=== PATIENT | male | born 1965 | race Caucasian/White ===

== ENCOUNTER → 2018-03-15 | Outpatient (CLI) | payer BC, OTHER ==
[~2018-03-15] MED LIST: AMLO10; AMLO5 PO; ARMODAFINIL250 MG PO; CARV25 PO; CLON.2; Coreg12.5 MG PO; Depo-Testos200 MG/ML; Desyrel50 MG PO; ESCI10 PO; HYDCHL25 PO; INTERMEZZO3.5 MG PO; MODA200 PO; Magnesium Gluc500 MG; NAPR500; NEBI10 PO; ROSU10TA PO; SERT100; TAMS.4ER; TEMA15; TEMA30 PO; TRAM50; TRAM50 PO; VIIBRYD20 MG; ZESTRIL40 MG PO
[2018-03-15 14:38] LABS: Prostate Specific Antigen 0.696 ng/mL (0.000-4.000)
== END | disposition home or self-care (01) ==
LOC: LAB 13:46 → LAB SHORT 13:46
PROVIDERS: Hospitalist
DX: Z12.5 Encounter for screening for malignant neoplasm of prostate (principal)
CPT/HCPCS: G0103

== ENCOUNTER 2018-06-30 10:45 | Day surgery (SDC) | payer BC, OTHER ==
[~2018-06-30] VITALS: Ht 170.2 cm; Wt 101.7 kg
[~2018-06-30 10:45] MED LIST changes: +CLON.2 PO; +DIAZ5 PO; +Depo-Testos200 MG/ML IM; +MIRT30 PO; +SILDENAFIL20 MG PO
== END 2018-06-30 12:25 | disposition home or self-care (01) ==
LOC: ORSCSDS 10:45
PROVIDERS: Student in an Organized Health Care Education/Training Program
PROC: 0DBN8ZX Excision of Sigmoid Colon, Via Natural or Artificial Opening Endoscopic, Diagnostic (ICD-10-PCS; principal; 2018-06-30 12:00)
PROC: 0DBP8ZX Excision of Rectum, Via Natural or Artificial Opening Endoscopic, Diagnostic (ICD-10-PCS; principal; 2018-06-30 12:00)
DX: Z12.11 Encounter for screening for malignant neoplasm of colon (principal); K63.5 Polyp of colon; K62.1 Rectal polyp; I10 Essential (primary) hypertension; G47.33 Obstructive sleep apnea (adult) (pediatric); F41.8 Other specified anxiety disorders; Z87.891 Personal history of nicotine dependence; Z79.899 Other long term (current) drug therapy
CPT/HCPCS: 88305; J2704; J7120

== ENCOUNTER 2018-08-17 20:10 | Emergency (ER) | payer BC ==
[~2018-08-17] VITALS: Ht 170.2 cm; Wt 107.0 kg
[2018-08-17 21:38] LABS: BASOPHILS ABSOLUTE AUTO 0.05 K/mm3 (0.00-0.23); BASOPHILS PERCENT AUTO 1 % (0-2); EOSINOPHILS ABSOLUTE AUTO 0.13 K/mm3 (0.00-0.68); EOSINOPHILS PERCENT AUTO 2 % (0-6); Hematocrit 52.9 % (37.0-53.0); Hemoglobin 17.9 g/dL (13.5-17.5); IMMATURE GRAN ABSOLUTE AUTO 0.03 K/mm3 (0.00-0.10); IMMATURE GRAN PERCENT AUTO 0 % (0-1); LYMPHOCYTES ABSOLUTE AUTO 1.84 K/mm3 (0.84-5.20); LYMPHOCYTES PERCENT AUTO 22 % (21-46); MONOCYTES ABSOLUTE AUTO 0.83 K/mm3 (0.16-1.47); MONOCYTES PERCENT AUTO 10 % (4-13); Mean Corpuscular HGB 30.5 pg (26.0-34.0); Mean Corpuscular HGB Conc 33.8 g/dL (31.5-36.5); Mean Corpuscular Volume 90 fL (80-100); Mean Platelet Volume 9.5 fL (9.1-12.4); NEUTROPHILS ABSOLUTE AUTO 5.45 K/mm3 (1.96-9.15); NEUTROPHILS PERCENT AUTO 65 % (41-73); Platelet Count 253 K/mm3 (150-400); RDW Coefficient Variation 12.4 % (11.7-14.2); RDW Standard Deviation 41.2 fL (35.1-46.3); Red Blood Cell Count 5.87 M/mm3 (4.30-5.90); White Blood Cell Count 8.33 K/mm3 (4.00-11.30)
[2018-08-17 21:54] LABS: Troponin I <0.015 ng/mL (0.000-0.040)
[2018-08-17 21:55] LABS: Alanine Aminotransfer (ALT/SGP 53 U/L (12-78); Albumin, Blood 4.4 g/dL (3.4-5.0); Albumin/Globulin Ratio 1.3 (0.8-1.8); Alk Phos 62 U/L (50-136); Anion Gap 6 mmol/L (6-16); Aspartate Aminotrans (AST/SGOT 27 U/L (12-37); Bilirubin, Total 0.4 mg/dL (0.1-1.0); Blood Urea Nitrogen 16 mg/dL (8-24); Bun/Creatinine Ratio 15.7 (12.0-20.0); CO2, Blood 28 mmol/L (21-32); Calcium, Blood 9.2 mg/dL (8.5-10.1); Chloride, Blood 104 mmol/L (98-108); Creatinine, Blood 1.02 mg/dL (0.60-1.20); Globulin, Blood 3.5 g/dL (2.2-4.0); Glomerular Filtration Rate >60 (60-); Glucose, Blood 174 mg/dL (70-99); Sodium, Blood 138 mmol/L (136-145); Total Protein, Blood 7.9 g/dL (6.4-8.2)
== END 2018-08-18 01:35 | disposition home or self-care (01) ==
LOC: ER 20:10
PROVIDERS: Emergency Medicine
DX: I10 Essential (primary) hypertension (principal); F32.9 Major depressive disorder, single episode, unspecified; E78.5 Hyperlipidemia, unspecified; Z87.891 Personal history of nicotine dependence
CPT/HCPCS: 36415; 80053; 84484; 85025; 93005; 93010

== ENCOUNTER → 2018-10-24 | Outpatient (CLI) | payer BC ==
[2018-10-24 14:30] LABS: BASOPHILS ABSOLUTE AUTO 0.03 K/mm3 (0.00-0.23); BASOPHILS PERCENT AUTO 0 % (0-2); EOSINOPHILS ABSOLUTE AUTO 0.07 K/mm3 (0.00-0.68); EOSINOPHILS PERCENT AUTO 1 % (0-6); Hemoglobin 18.5 g/dL (13.5-17.5); IMMATURE GRAN ABSOLUTE AUTO 0.07 K/mm3 (0.00-0.10); IMMATURE GRAN PERCENT AUTO 1 % (0-1); LYMPHOCYTES ABSOLUTE AUTO 1.53 K/mm3 (0.84-5.20); LYMPHOCYTES PERCENT AUTO 21 % (21-46); MONOCYTES ABSOLUTE AUTO 0.73 K/mm3 (0.16-1.47); MONOCYTES PERCENT AUTO 10 % (4-13); Mean Corpuscular HGB Conc 32.8 g/dL (31.5-36.5); Mean Corpuscular Volume 91 fL (80-100); Mean Platelet Volume 10.2 fL (9.1-12.4); NEUTROPHILS ABSOLUTE AUTO 5.04 K/mm3 (1.96-9.15); NEUTROPHILS PERCENT AUTO 68 % (41-73); Platelet Count 260 K/mm3 (150-400); RDW Coefficient Variation 13.2 % (11.7-14.2); RDW Standard Deviation 43.8 fL (35.1-46.3); Red Blood Cell Count 6.17 M/mm3 (4.30-5.90); White Blood Cell Count 7.47 K/mm3 (4.00-11.30)
[2018-10-24 14:36] LABS: Hematocrit 56.4 % (37.0-53.0)
[2018-10-24 14:52] LABS: Albumin, Blood 4.4 g/dL (3.4-5.0); Albumin/Globulin Ratio 1.3 (0.8-1.8); Anion Gap 4 mmol/L (6-16); Blood Urea Nitrogen 23 mg/dL (8-24); Bun/Creatinine Ratio 19.2 (12.0-20.0); CO2, Blood 29 mmol/L (21-32); Chloride, Blood 104 mmol/L (98-108); Cholesterol 140 mg/dL (50-200); Globulin, Blood 3.3 g/dL (2.2-4.0); Glomerular Filtration Rate >60 (60-); Glucose, Blood 121 mg/dL (70-99); HDL Cholesterol 40 mg/dL (>39); LDL/HDL RATIO 1.6; Potassium, Blood 4.5 mmol/L (3.5-5.5); Sodium, Blood 137 mmol/L (136-145); Total Protein, Blood 7.7 g/dL (6.4-8.2); Triglycerides 181 mg/dL (30-160); Very Low Density Lipoprot Chol 36 mg/dL (6-32)
[2018-10-24 14:53] LABS: Alanine Aminotransfer (ALT/SGP 50 U/L (12-78); Alk Phos 55 U/L (50-136); Aspartate Aminotrans (AST/SGOT 25 U/L (12-37); Bilirubin, Total 1.2 mg/dL (0.1-1.0); CHOL/HDL RATIO 3.5; Low Density Lipoprotein Chol 64 mg/dL (0-110)
== END | disposition home or self-care (01) ==
LOC: LAB 14:10 → LAB SHORT 14:10
PROVIDERS: Hospitalist
DX: E78.5 Hyperlipidemia, unspecified (principal); I10 Essential (primary) hypertension
CPT/HCPCS: 80053; 80061; 85025

== ENCOUNTER → 2019-02-14 | Outpatient (CLI) | payer BC ==
[2019-02-14 19:52] LABS: BASOPHILS ABSOLUTE AUTO 0.05 K/mm3 (0.00-0.23); BASOPHILS PERCENT AUTO 1 % (0-2); EOSINOPHILS ABSOLUTE AUTO 0.07 K/mm3 (0.00-0.68); EOSINOPHILS PERCENT AUTO 1 % (0-6); Hematocrit 51.9 % (37.0-53.0); Hemoglobin 17.4 g/dL (13.5-17.5); IMMATURE GRAN ABSOLUTE AUTO 0.05 K/mm3 (0.00-0.10); IMMATURE GRAN PERCENT AUTO 1 % (0-1); LYMPHOCYTES ABSOLUTE AUTO 1.51 K/mm3 (0.84-5.20); LYMPHOCYTES PERCENT AUTO 18 % (21-46); MONOCYTES ABSOLUTE AUTO 0.88 K/mm3 (0.16-1.47); MONOCYTES PERCENT AUTO 10 % (4-13); Mean Corpuscular HGB 30.9 pg (26.0-34.0); Mean Corpuscular HGB Conc 33.5 g/dL (31.5-36.5); Mean Corpuscular Volume 92 fL (80-100); Mean Platelet Volume 10.8 fL (9.1-12.4); NEUTROPHILS ABSOLUTE AUTO 6.01 K/mm3 (1.96-9.15); NEUTROPHILS PERCENT AUTO 70 % (41-73); Platelet Count 314 K/mm3 (150-400); RDW Coefficient Variation 12.5 % (11.7-14.2); RDW Standard Deviation 42.6 fL (35.1-46.3); Red Blood Cell Count 5.64 M/mm3 (4.30-5.90); White Blood Cell Count 8.57 K/mm3 (4.00-11.30)
[2019-02-14 20:35] LABS: Alanine Aminotransfer (ALT/SGP 65 U/L (12-78); Albumin, Blood 4.2 g/dL (3.4-5.0); Albumin/Globulin Ratio 1.2 (0.8-1.8); Alk Phos 68 U/L (50-136); Anion Gap 7 mmol/L (6-16); Aspartate Aminotrans (AST/SGOT 39 U/L (12-37); Bilirubin, Total 0.4 mg/dL (0.1-1.0); Blood Urea Nitrogen 25 mg/dL (8-24); Bun/Creatinine Ratio 20.8 (12.0-20.0); CO2, Blood 26 mmol/L (21-32); Calcium, Blood 9.1 mg/dL (8.5-10.1); Chloride, Blood 103 mmol/L (98-108); Globulin, Blood 3.4 g/dL (2.2-4.0); Glomerular Filtration Rate >60 (60-); Glucose, Blood 130 mg/dL (70-99); Potassium, Blood 4.6 mmol/L (3.5-5.5); Sodium, Blood 136 mmol/L (136-145); Total Protein, Blood 7.6 g/dL (6.4-8.2); Troponin I <0.015 ng/mL (0.000-0.040)
== END | disposition home or self-care (01) ==
LOC: LAB SHORT 17:50 → LAB 17:50
PROVIDERS: Hospitalist
DX: E78.5 Hyperlipidemia, unspecified (principal); I10 Essential (primary) hypertension; M79.10 Myalgia, unspecified site; R53.83 Other fatigue
CPT/HCPCS: 80053; 84484; 85025; 85651

== ENCOUNTER → 2019-07-25 | Outpatient (CLI) | payer BC ==
[2019-07-25 15:47] LABS: Prostate Specific Antigen 0.519 ng/mL (0.000-4.000)
== END | disposition home or self-care (01) ==
LOC: LAB SHORT 14:03 → LAB 14:03
PROVIDERS: Hospitalist
DX: Z12.5 Encounter for screening for malignant neoplasm of prostate (principal); E29.1 Testicular hypofunction
CPT/HCPCS: G0103

== ENCOUNTER → 2019-08-28 | Outpatient (CLI) | payer BC | END | disposition home or self-care (01) | LOC: LAB 16:00 → LAB SHORT 16:00 | DX: I10 Essential (primary) hypertension (principal) | CPT/HCPCS: 83880 ==

== ENCOUNTER 2021-04-11 05:23 | Emergency (ER) | payer BC, OTHER ==
[~2021-04-11] VITALS: Ht 170.2 cm; Wt 108.9 kg
[~2021-04-11 05:23] MED LIST changes: +AMLO10 PO; +AMLODIPINE BESY10 MG PO; +Bystolic20 MG PO; +CHLO25B PO; +DESVENLAFAXINE100 M3 PO; +DESVENLAFAXINE25 MG PO; +Diazepam5 MG PO; +FUROSEMIDE40 MG PO; +Klor-Con 1010 MEQ PO; +METFORMIN HCL500 M3 PO; +Magnesium500 M1 PO; +Natural Vita400 UNIT PO; +SPIRONOLACTONE50 MG PO; +VITAMIN D31000 UNI1 PO
[2021-04-11] MEDS ORDERED: EPLERENONE50 M1 PO (06:31)
[2021-04-11] MEDS ORDERED: IBUP400 (06:31)
[2021-04-11] MEDS ORDERED: CHLO25B PO (06:32)
[2021-04-11] MEDS ORDERED: Bisoprolol Fumar5 MG PO (06:33)
[2021-04-11] MEDS ORDERED: DIAZ5 PO (06:36)
[2021-04-11] MEDS ORDERED: ESZO3 PO (06:39)
[2021-04-11] MEDS ORDERED: ABILIFY MYCITE2 M2 (06:42)
[2021-04-11] MEDS ORDERED: CIPRO250 MG/5 M PO (06:55)
[2021-04-11 08:37] LABS: Influenza A, PCR NEGATIVE (NEGATIVE); Influenza B, PCR NEGATIVE (NEGATIVE); Resp Syncytial Virus, PCR NEGATIVE (NEGATIVE); SARS-Cov-2 (COVID-19) PCR, MMC NEGATIVE (NEGATIVE)
[2021-04-11] MEDS ORDERED: LIDO700A20 TOP (09:22)
[2021-04-11] MEDS ORDERED: Ventolin/Prove6.7 GM INH (09:22)
== END 2021-04-11 08:16 | disposition home or self-care (01) ==
LOC: ER 05:23
PROVIDERS: Family Medicine
DX: R07.89 Other chest pain (principal); I10 Essential (primary) hypertension; E78.5 Hyperlipidemia, unspecified; Z87.891 Personal history of nicotine dependence
CPT/HCPCS: 0241U; 71045; 99284-25; A9270

== ENCOUNTER 2021-04-18 19:26 | Emergency (ER) | payer BC, OTHER ==
[~2021-04-18] VITALS: Ht 170.2 cm; Wt 108.9 kg
[~2021-04-18 19:26] MED LIST changes: +ABILIFY MYCITE2 M2; +Bisoprolol Fumar5 MG PO; +CIPRO250 MG/5 M PO; +EPLERENONE50 M1 PO; +ESZO3 PO; +IBUP400; +LIDO700A20 TOP; +Ventolin/Prove6.7 GM INH
[2021-04-18] MEDS ORDERED: BENZ100A PO (20:37)
== END 2021-04-18 21:00 | disposition home or self-care (01) ==
LOC: ER 19:26
DX: S30.1XXA Contusion of abdominal wall, initial encounter (principal); R05.9 Cough, unspecified; E78.5 Hyperlipidemia, unspecified; I10 Essential (primary) hypertension; E11.9 Type 2 diabetes mellitus without complications; Z79.899 Other long term (current) drug therapy; Z79.84 Long term (current) use of oral hypoglycemic drugs; X58.XXXA Exposure to other specified factors, initial encounter
CPT/HCPCS: 71101; 99283-25

== ENCOUNTER 2021-04-19 18:52 | Emergency (ER) | payer BC, OTHER ==
[~2021-04-19] VITALS: Ht 170.2 cm; Wt 108.9 kg
[~2021-04-19 18:52] MED LIST changes: +BENZ100A PO
== END 2021-04-19 19:22 | disposition home or self-care (01) ==
LOC: ER 18:52
DX: I10 Essential (primary) hypertension (principal); E78.5 Hyperlipidemia, unspecified; Z87.891 Personal history of nicotine dependence; Z79.899 Other long term (current) drug therapy
CPT/HCPCS: 99282

== ENCOUNTER → 2021-09-23 | Outpatient (CLI) | payer OTHER ==
[2021-09-23 21:48] LABS: Bun/Creatinine Ratio 28.4 (12.0-20.0); Calcium, Blood 9.7 mg/dL (8.5-10.1); Creatinine, Blood 0.81 mg/dL (0.60-1.20)
== END | disposition home or self-care (01) ==
LOC: LAB SHORT 16:55
PROVIDERS: Hospitalist
DX: R25.2 Cramp and spasm (principal)
CPT/HCPCS: 80048

== ENCOUNTER → 2022-02-16 | Outpatient (CLI) | payer OTHER | END | disposition home or self-care (01) | LOC: LAB SHORT 16:55 | DX: E11.9 Type 2 diabetes mellitus without complications (principal) | CPT/HCPCS: 82043 ==

== ENCOUNTER → 2023-04-27 | Outpatient (CLI) | payer BC, OTHER ==
[2023-04-29 14:12] LABS: CALCIUM, SERUM 10.9 mg/dL (8.7-10.2); CREATININE, SERUM 1.11 mg/dL (0.76-1.27); POTASSIUM, SERUM 4.4 mmol/L (3.5-5.2)
== END ==
LOC: LAB SHORT 17:15 → LAB 17:15
PROVIDERS: Hospitalist
DX: H53.8 Other visual disturbances (principal)
CPT/HCPCS: 80048

== ENCOUNTER → 2024-01-18 | Outpatient (CLI) | payer OTHER | LOC: LAB SHORT 17:51 → LAB 17:51 | DX: G56.90 Unspecified mononeuropathy of unspecified upper limb (principal) | CPT/HCPCS: 82607 ==

== ENCOUNTER → 2024-03-14 | Outpatient (CLI) | payer OTHER | END | disposition home or self-care (01) | LOC: LAB SHORT 18:00 → LAB 18:00 | DX: M79.641 Pain in right hand (principal) | CPT/HCPCS: 85651; 86430 ==